=== PATIENT | female | born 1965 | race Caucasian/White ===

== ENCOUNTER 2024-08-09 16:22 | Emergency (ER) | payer SELFPAY ==
[2024-08-09 16:23] VITALS: BP 109/75; PULSE 100; RESP 18; TEMP 36.8; O2SAT 95
--- NOTE | 2024-08-09 16:30 | CTR_ITS ---
PROCEDURE INFORMATION: Exam: CT Lumbar Spine Without Contrast Exam date and time: 08/09/2024 4:47 PM Age: 59 years old Clinical indication: Injury or trauma; Fall; Blunt trauma (contusions or hematomas); Additional info: Fall injury TECHNIQUE: Imaging protocol: Computed tomography of the lumbar spine without contrast. Radiation optimization: All CT scans at this facility use at least one of these dose optimization techniques: automated exposure control; mA and/or kV adjustment per patient size (includes targeted exams where dose is matched to clinical indication); or iterative reconstruction. COMPARISON: No relevant prior studies available. RADIATION DOSE METRICS: Total DLP (mGy-cm): 822.2 FINDINGS: Bones/joints: No acute fracture. Normal alignment. Severe spinal canal stenosis posterior to L3-L4 and to a lesser extent L2-L3. Kidneys and ureters: Several punctate nonobstructing stones noted in the right kidney. Soft tissues: Unremarkable. CT/CT lumbar spine wo con* [id number] IMPRESSION: 1. No acute osseous abnormalities of the lumbar spine. 2. Severe spinal canal stenosis posterior to L3-L4 and to a lesser extent L2 on L3. 3. Several punctate nonobstructing stones noted in the right kidney.
--- NOTE | 2024-08-09 16:30 | CTR_ITS ---
PROCEDURE INFORMATION: Exam: CT Cervical Spine Without Contrast Exam date and time: 08/09/2024 4:42 PM Age: 59 years old Clinical indication: Injury or trauma; Fall; Blunt trauma; Additional info: Fall injury TECHNIQUE: Imaging protocol: Computed tomography of the cervical spine without contrast. Radiation optimization: All CT scans at this facility use at least one of these dose optimization techniques: automated exposure control; mA and/or kV adjustment per patient size (includes targeted exams where dose is matched to clinical indication); or iterative reconstruction. COMPARISON: No relevant prior studies available. RADIATION DOSE METRICS: Total DLP (mGy-cm): 204.07 FINDINGS: Bones: No acute fracture. Normal alignment. No severe spinal canal stenosis. Lungs: Lung apices are normal. Soft tissues: Unremarkable. CT/CT cervical spin wo con* [id number] IMPRESSION: No acute findings.
--- NOTE | 2024-08-09 16:31 | ED_ITS ---
HPI - Fall General: Chief Complaint: Fall Stated Complaint: low back pain Time Seen by Provider: 08/09/24 16:26 History of Present Illness: 59-year-old female comes in today for co mplaints of neck and low back pain. Patient reports that she was climbing on the fourth rail while using a stool when the stool turned on her causing her to fall backwards. Patient landed on her buttocks and struck the lower part of the stool against her low back. Patient has pain in the low back. Patient was brought in by EMS and is in a cervical collar. Patient denies any head injury or loss of consciousness. Patient does have a history of a lumbar fusion. Patient denies loss of bowel or bladder control. Related Data Previous Rx's Medication Instructions Recorded cyclobenzaprine 5 mg tablet 5 mg PO TID PRN muscle spasm #14 08/09/24 tabs diclofenac sodium 75 mg 75 mg PO BID #14 tabs 08/09/24 tablet,delayed release hydrocodone 5 mg-acetaminophen 325 1 tab PO Q8H PRN pain (scale score 08/09/24 mg tablet 7-10) #7 tabs Allergies Allergy/AdvReac Type Severity Reaction Status Date / Time Penicillins Allergy Unknown Verified 08/09/24 16:32 Review of Systems General: Reports: 10 or more systems reviewed and unremarkable except in HPI and below Musc: Reports: back pain Physical Exam Const: COMMON NORMALS: alert HENMT: COMMON NORMALS: normocephalic HEAD & SCALP: normocephalic MOUTH: Normal oral and palatal mucosa present THROAT: posterior oropharynx normal Neck/C-Spine: CERVICAL SPINE: No Cervical spine tenderness and No Paracervical muscle tenderness Chest: COMMONS NORMALS: normal inspection of the chest and normal palpation of entire chest wall Resp: COMMON NORMALS: normal respiratory effort and clear to auscultation bilaterally AUSCULTATION: clear to auscultation bilaterally Cardio: COMMON NORMALS: regular rate RATE: regular rate GI: COMMON NORMALS: Soft to palpation and non-tender PALPATION: Yes Soft to palpation Back/Pelvis: LUMBAR SPINE/LOWER BACK: Yes lumbar spinal tenderness Lumbar spinal tenderness location: L4 and L5 and No paraspinal muscle tenderness Extremity: COMMON NORMALS: normal to inspection and full ROM Neuro: SENSORIUM/ORIENTATION: Yes alert Skin: COMMON NORMALS: turgor normal GENERAL SKIN EXAM: turgor normal Course Vital Signs: Vital signs: Vital Signs Temperature 98.2 F 08/09/24 16:33 Pulse Rate 108 H 08/09/24 17:04 Respiratory Rate 94 H 08/09/24 17:04 Blood Pressure 109/75 08/09/24 16:33 Pulse Oximetry 94 08/09/24 17:04 Oxygen Delivery Me thod Room Air 08/09/24 17:04 MDM - Fall Medical Decision Making 59-year-old female comes in today for complaints of lower back injury. Patient does have a history of a lumbar fusion. Patient fell off a horse while trying to mount it. On exam patient appears nontoxic. Patient does have some tenderness of the lower lumbar spine. No obvious bruising or skin injury is noted. Patient is in c-collar for spine immobilization. Differential diagnosis includes fracture, intervertebral disc disease, facet arthropathy, muscle strain, contusion. CT of the cervical spine and lumbar spine noted no acute abnormality. Patient does have some canal stenosis with degenerative changes of the lumbar spine. Patient be treated for acute pain with hydrocodone, diclofenac, and cyclobenzaprine. Patient was recommended to follow-up with primary care in 3 to 5 days. Lab Data Radiology Impressions Cervical Spine CT 08/09/24 16:30 IMPRESSION: No acute findings. Lumbar Spine CT 08/09/24 16:30 IMPRESSION: 1. No acute osseous abnormalities of the lumbar spine. 2. Severe spinal canal stenosis posterior to L3-L4 and to a lesser extent L2 on L3. 3. Several punctate nonobstructing stones noted in the right kidney. All radiology interpretation(s) finalized by discharge Discharge Plan Discharge Patient Disposition: Home Clinical Impression: Fall Qualifiers: Encounter type: initial encounter Qualified Code(s): W19.XXXA - Unspecified fall, initial encounter Low back pain Qualifiers: Chronicity: acute Back pain laterality: midline Sciatica presence: without sciatica Qualified Code(s): M54.50 - Low back pain, unspecified Condition: Stable Prescriptions: New diclofenac sodium 75 mg tablet,delayed release (DR/EC) 75 mg PO BID Qty: 14 0RF cyclobenzaprine 5 mg tablet 5 mg PO TID PRN (Reason: muscle spasm) Qty: 14 0RF hydrocodone-acetaminophen 5-325 mg tablet 1 tab PO Q8H PRN (Reason: pain (scale score 7-10)) Qty: 7 0RF Discharge Orders: Discharge ED (Routine); Ordered 08/09/24 Ordered By: Lauro Mares Discharge Diet: Usual diet Discharge Activity: Increase activity as tolerated Patient Instructions: Back Pain (ED) Activity Restrictions/Additional Instructions: activity as tolerated, follow-up with primary care or orthopedic employee communications specialist as needed Coding Level of Care Code ED Medical Office Receptionist for [facility]
[2024-08-09 16:33] VITALS: BP 109/75; PULSE 100; RESP 18; TEMP 36.8; O2SAT 95
[2024-08-09 17:04] VITALS: PULSE 108; RESP 94; O2SAT 94
[2024-08-09] MEDS: morphine 4 mg/mL SDV 1 mL IVP (18:41)
[2024-08-09 18:59] VITALS: BP 106/66; PULSE 72; O2SAT 94
== END 2024-08-09 19:06 | disposition home or self-care (01) ==
PROVIDERS: Emergency Provider Nurse Practitioner Family
DX: M54.50 Low back pain, unspecified (principal); M54.2 Cervicalgia; V80.010A Animal-rider injured by fall from or being thrown from horse in noncollision accident, initial encounter; Z98.1 Arthrodesis status
CPT/HCPCS: 72125; 72131; 96374; 99285; J2270